=== PATIENT | female | born 1995 | race African-American/Black ===

== ENCOUNTER 2020-04-11 17:44 | Emergency (ER) | payer SELFPAY ==
--- NOTE | 2020-04-11 19:48 | ER ---
Nurse's Notes [facility] Name: Virginia Yip Age: 24 yrs Sex: Female : 1995 Arrival Date: 04/11/2020 Time: 17:47 Bed 16 Private MD: Diagnosis: Dental Pain Presentation: 04/11 18:10 Chief complaint: Patient states: tooth broke, gums and face swelling x 3 days. Haven't ca1 able to eat anything for the past 2 days. Coronavirus screen: Client denies travel out of the [place] in the last 14 days. At this time, the client does not indicate any symptoms associated with coronavirus-19. Ebola Screen: Patient negative for fever greater than or equal to 101.5 degrees Fahrenheit, and additional compatible Ebola Virus Disease symptoms Patient denies exposure to infectious person. Patient denies travel to an Ebola-affected area in the 21 days before illness onset. No symptoms or risks identified at this time. Initial Sepsis Screen: Does the patient meet any 2 criteria? No. Patient's initial sepsis screen is negative. Does the patient have a suspected source of infection? No. Patient's initial sepsis screen is negative. Risk Assessment: Do you want to hurt yourself or someone else? Patient reports no desire to harm self or others. Onset of symptoms was April 11, 2020. 18:10 Method Of Arrival: Ambulatory ca1 18:10 Acuity: MAYRA 4 ca1 Triage Assessment: 04/12 03:31 General: Appears. 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 - Social history:: Smoking status: Patient denies any tobacco usage or history of. Screenin:00 Abuse screen: Denies threats or abuse. Nutritional screening: No deficits noted. fu Tuberculosis screening: No symptoms or risk factors identified. Fall Risk None identified. Assessment: 19:00 General: Appears in no apparent distress. Behavior is calm, cooperative, appropriate fu for age, Denies fever, feeling ill, fatigue, chills. Pain: Complains of pain in left face Pain does not radiate. Pain currently is 8 out of 10 on a pain scale. Quality of pain is described as sharp, Pain began 2-3 days ago. Neuro: Level of Consciousness is awake, alert, obeys commands, Oriented to person, place, time, situation, Gait is steady, Speech is normal, Facial symmetry appears normal. Cardiovascular: Denies chest pain, vomiting. Respiratory: Respiratory effort is even, unlabored, Respiratory pattern is regular. GI: No signs and/or symptoms were reported involving the gastrointestinal system. EENT: Reports oral pain. Derm: mild swelling of the left face. Vital Signs: 18:10 BP 123 / 81; Pulse 69; Resp 16 S; Temp 97.1(TE); Pulse Ox 100% on R/A; Weight 76.2 kg ca1 (R); Height 5 ft. 2 in. (157.48 cm) (R); Pain 8/10; 18:10 Body Mass Index 30.73 (76.20 kg, 157.48 cm) ca1 ED Course: 17:47 Patient arrived in ED. ag5 18:13 Triage completed. ca1 18:14 Arm band placed on right wrist. ca1 18:15 Aakash Flanagan PA is PHCP. [facility] 18:15 Valente Velez MD is Attending Physician. [facility] 19:21 Ori Hull MD is Attending Physician. [facility] 19:32 [place], RN is Primary Nurse. fu 19:46 Chaim Omer DDS is Referral Physician. [facility] 20:00 Patient has correct armband on for positive identification. Bed in low position. Call fu light in reach. Side rails up X 1. 20:00 No provider procedures requiring assistance completed. fu 20:20 Patient did not have IV access during this emergency room visit. fu Administered Medications: 20:09 Drug: [place] 10 mg-325 mg 1 tabs Route: PO; ll2 20:20 Follow up: Response: Pain is decreased fu Outcome: 19:47 Discharge ordered by . jmm 20:20 Discharged to home ambulatory. fu 20:20 Condition: good 20:20 Discharge instructions given to patient, Instructed on discharge instructions, follow up and referral plans. Demonstrated understanding of instructions, follow-up care, Prescriptions given X 2. 20:27 Patient left the ED. fu Signatures: Ori Hull MD MD cha Mickail, Joel, PA PA jmm Umadhay, Felix, RN RN Annette Pink RN RN [facility] Gabrielle Kulkarni 5 Rosalba Shen RN RN ll2 Corrections: (The following items were deleted from the chart) 04/12 03:04/11 21:00 Response: Pain is decreased fu fu 04/12 03:04/11 20:30 Response: Pain is decreased fu fu
--- NOTE | 2020-04-11 19:48 | EDPHYS ---
Physician Documentation [facility] Name: Virginia Yip Age: 24 yrs Sex: Female : 1995 Arrival Date: 04/11/2020 Time: 17:47 Bed 16 Private MD: ED Physician Ori Hull HPI: 04/11 19:41 This 24 yrs old Black Female presents to ER via Ambulatory with complaints of Toothache.jmm 19:41 The patient presents with broken tooth/teeth, pain. Onset: The symptoms/episode jmm began/occurred acutely, 3 day(s) ago. Duration: The symptoms are continuous. Modifying factors: The symptoms are alleviated by nothing, the symptoms are aggravated by nothing. Associated signs and symptoms: Pertinent positives: swelling, Pertinent negatives: fever. The patient has not experienced similar symptoms in the past. 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 - Social history:: Smoking status: Patient denies any tobacco usage or history of. ROS: 19:41 Constitutional: Negative for fever, chills, and weight loss, Cardiovascular: Negative jmm for chest pain, palpitations, and edema, Respiratory: Negative for shortness of breath, cough, wheezing, and pleuritic chest pain. 19:41 ENT: Positive for dental pain. 19:41 All other systems are negative. Exam: 19:41 Constitutional: This is a well developed, well nourished patient who is awake, alert, jmm and in no acute distress. Head/Face: atraumatic. Eyes: EOMI, no conjunctival erythema appreciated ENT: Moist Mucus Membranes Neck: Trachea midline, Supple Chest/axilla: Normal chest wall appearance and motion. Cardiovascular: Regular rate and rhythm. No edema appreciated Respiratory: Normal respirations, no respiratory distress appreciated Abdomen/GI: Non distended, soft Back: Normal ROM 19:41 Skin: General appearance color normal MS/ Extremity: Moves all extremities, no obvious deformities appreciated, no edema noted to the lower extremities Neuro: Awake and alert, normal gait 19:41 ENT: Dental exam: gum swelling, that is moderate, specifically in the upper left second molar (#15). Vital Signs: 18:10 BP 123 / 81; Pulse 69; Resp 16 S; Temp 97.1(TE); Pulse Ox 100% on R/A; Weight 76.2 kg ca1 (R); Height 5 ft. 2 in. (157.48 cm) (R); Pain 8/10; 18:10 Body Mass Index 30.73 (76.20 kg, 157.48 cm) ca1 MDM: 19:21 Patient medically screened. [facility] 19:43 Data reviewed: vital signs, nurses notes. Counseling: I had a detailed discussion with payal the patient and/or guardian regarding: the historical points, exam findings, and any diagnostic results supporting the discharge/admit diagnosis, the need for outpatient follow up, to return to the emergency department if symptoms worsen or persist or if there are any questions or concerns that arise at home. ED course: Patient is alert and non toxic in appearance in the ED. Patient advised to follow up with pcp and otherwise given strict return precautions. Patient understood and agrees with the plan of care. . Administered Medications: 20:09 Drug: [place] 10 mg-325 mg 1 tabs Route: PO; ll2 20:20 Follow up: Response: Pain is decreased fu Disposition: 04/12 06:43 Co-signature as Attending Physician, Ori Hull MD I agree with the assessment and [facility] plan of care. Disposition: 04/11/20 19:47 Discharged to Home. Impression: Dental Pain. - Condition is Stable. - Discharge Instructions: Dental Pain. - Prescriptions for Clindamycin HCl 300 mg Oral Capsule - take 1 capsule by ORAL route every 6 hours for 10 days; 40 capsule. Ultracet 37.5- 325 mg Oral Tablet - take 1 tablet by ORAL route every 6 hours - for up to 5 days; do not exceed 8 tablets per day.; 12 tablet. - Medication Reconciliation Form, Thank You Letter, Antibiotic Education, Prescription Opioid Use form. - Follow up: Chaim Omer DDS; When: 2 - 3 days; Reason: Recheck today's complaints, Continuance of care, Re-evaluation by your physician. Signatures: Ori Hull MD MD cha Mickail, Joel, PA PA jmm Umadhay, Los, RN RN Annette Doll, RN RN [facility] Rosalba Sehn, RN RN ll2 Corrections: (The following items were deleted from the chart) 04/11 20:27 19:47 04/11/2020 19:47 Discharged to Home. Impression: Dental Pain. Condition is fu Stable. Forms are Medication Reconciliation Form, Thank You Letter, Antibiotic Education, Prescription Opioid Use. Follow up: Chaim Omer; When: 2 - 3 days; Reason: Recheck today's complaints, Continuance of care, Re-evaluation by your physician. payal
[2020-04-11] MEDS ORDERED: HYDROCODONE/APAP 10/325 TAB ONE (20:24)
[2020-04-11 21:47] VITALS: BP 123/81; TEMP 97.1; O2SAT 100
== END 2020-04-11 20:27 | disposition home or self-care (01) ==
LOC: ER 17:44
DX: K08.89 Other specified disorders of teeth and supporting structures (principal); I10 Essential (primary) hypertension
CPT/HCPCS: 99283

== ENCOUNTER 2020-09-14 11:35 | Emergency (ER) | payer SELFPAY ==
--- NOTE | 2020-09-14 11:53 | EDPHYS ---
Physician Documentation [facility] Name: Virginia Yip Age: 24 yrs Sex: Female : 1995 Arrival Date: 09/14/2020 Time: 11:37 Bed Waiting Private MD: ED Physician Ori Hull HPI: 09/14 11:56 This 24 yrs old Black Female presents to ER via Ambulatory with complaints of Sore jr8 Throat. 11:56 The patient presents with sore throat. The patient describes throat pain as constant, jr8 raw. Onset: The symptoms/episode began/occurred acutely, 2 day(s) ago. Severity of symptoms: At their worst the symptoms were moderate, in the emergency department the symptoms are unchanged. Modifying factors: The symptoms are alleviated by nothing, the symptoms are aggravated by swallowing. Associated signs and symptoms: Pertinent positives: headache, vomiting. The patient has not experienced similar symptoms in the past. The patient has not recently seen a physician. Historical: - Allergies: 11:49 HYDRALAZINE; tw2 11:49 Ketorolac; tw2 11:49 PENICILLINS; tw2 - PMHx: 11:49 Hypertension; tw2 - Immunization history:: Adult Immunizations. - Social history:: Smoking status: . ROS: 11:56 Eyes: Negative for injury, pain, redness, and discharge, Neck: Negative for injury, jr8 pain, and swelling, Cardiovascular: Negative for chest pain, palpitations, and edema, Respiratory: Negative for shortness of breath, cough, wheezing, and pleuritic chest pain, Abdomen/GI: Negative for abdominal pain, diarrhea, and constipation. Positive for nausea and vomiting Back: Negative for injury and pain, MS/Extremity: Negative for injury and deformity, Skin: Negative for injury, rash, and discoloration, Neuro: Negative for headache, weakness, numbness, tingling, and seizure. 11:56 ENT: Positive for sore throat. Exam: 11:56 Head/Face: Normocephalic, atraumatic. Eyes: Pupils equal round and reactive to light, jr8 extra-ocular motions intact. Lids and lashes normal. Conjunctiva and sclera are non-icteric and not injected. Cornea within normal limits. Periorbital areas with no swelling, redness, or edema. Cardiovascular: Regular rate and rhythm with a normal S1 and S2. No gallops, murmurs, or rubs. Normal PMI, no JVD. No pulse deficits. Respiratory: Lungs have equal breath sounds bilaterally, clear to auscultation and percussion. No rales, rhonchi or wheezes noted. No increased work of breathing, no retractions or nasal flaring. Abdomen/GI: Soft, non-tender, with normal bowel sounds. No distension or tympany. No guarding or rebound. No evidence of tenderness throughout. Skin: Warm, dry with normal turgor. Normal color with no rashes, no lesions, and no evidence of cellulitis. MS/ Extremity: Pulses equal, no cyanosis. Neurovascular intact. Full, normal range of motion. Neuro: Awake and alert, GCS 15, oriented to person, place, time, and situation. Cranial nerves II-XII grossly intact. Motor strength 5/5 in all extremities. Sensory grossly intact. 11:56 ENT: Exam is negative for earache, ear discharge, TM abnormalities, Nose: External nose: no obvious acute abnormality, Nasal septum: is midline, Nasal mucosa: moist, Turbinates: are normal, Mouth: Lips: moist, Oral mucosa: pink and intact, moist, Gums: pink, Tongue: is moist, Posterior pharynx: Airway: patent, Tonsils: bilaterally enlarged, with erythema, with exudate, no ulcerations, Uvula: midline, non-edematous, no erythema, swelling, is not appreciated, erythema, that is mild. 11:56 Neck: External neck: is normal, C-spine: appears grossly normal, Thyroid: appears normal, Trachea: is midline with no obvious abnormalities, ROM/movement: is normal, Lymph nodes: lymphadenopathy is appreciated, posterior cervical nodes. Vital Signs: 11:47 BP 120 / 87; Pulse 94; Resp 18; Temp 98.4(TE); Pulse Ox 100% on R/A; tw2 MDM: 11:46 Patient medically screened. [facility] 12:02 Data reviewed: vital signs, nurses notes, lab test result(s), and as a result, I will jr8 discharge patient. Data interpreted: Pulse oximetry: on room air is 100 %. Interpretation: normal. Counseling: I had a detailed discussion with the patient and/or guardian regarding: the historical points, exam findings, and any diagnostic results supporting the discharge/admit diagnosis, lab results, the need for outpatient follow up, a family practitioner, to return to the emergency department if symptoms worsen or persist or if there are any questions or concerns that arise at home. 09/14 11:51 Order name: Strep tw2 Administered Medications: No medications were administered Disposition: 16:03 Co-signature as Attending Physician, Ori Hull MD I agree with the assessment and arleen plan of care. Disposition Summary: 09/14/20 11:53 Discharge Ordered Location: Home jr8 Problem: new jr8 Symptoms: are unchanged jr8 Condition: Stable jr8 Diagnosis - Acute pharyngitis due to other specified organism jr8 Followup: jr8 - With: Private Physician - When: 1 week - Reason: Recheck today's complaints, Continuance of care, Re-evaluation by your physician Discharge Instructions: - Discharge Summary Sheet jr8 - Pharyngitis jr8 Forms: - Medication Reconciliation Form jr8 - Thank You Letter jr8 - Antibiotic Education jr8 - Prescription Opioid Use jr8 Prescriptions: - Clindamycin HCl 300 mg Oral Capsule - take 1 capsule by ORAL route every 8 hours for 10 days; 30 capsule; Refills: 0, jr8 Product Selection Permitted - Zofran 4 mg Oral Tablet - take 1 tablet by ORAL route every 12 hours As needed; 20 tablet; Refills: 0, jr8 Product Selection Permitted Signatures: Dispatcher [employer] Ori Rowan MD MD cha Roszak, Josh, PA PA jr8 Odalys Peacock, RN RN tw2
--- NOTE | 2020-09-14 11:53 | ER ---
Nurse's Notes [facility] Name: Virginia Yip Age: 24 yrs Sex: Female : 1995 Arrival Date: 09/14/2020 Time: 11:37 Bed Waiting Private MD: Diagnosis: Acute pharyngitis due to other specified organism Presentation: 09/14 11:47 Chief complaint: Patient states: for 2 days i have been with cough congestion and runny tw2 nose. Coronavirus screen: congestion, cough unrelated to allergies, runny nose, Client presents with at least one sign or symptom that may indicate coronavirus-19. Standard/surgical mask placed on the client. Provider contacted for isolation considerations. Ebola Screen: Patient denies travel to an Ebola-affected area in the 21 days before illness onset. Initial Sepsis Screen: Does the patient meet any 2 criteria? HR > 90 bpm. No. Patient's initial sepsis screen is negative. Does the patient have a suspected source of infection? No. Patient's initial sepsis screen is negative. Risk Assessment: Do you want to hurt yourself or someone else? Patient reports no desire to harm self or others. Note provider Xander Turk in triage room. Onset of symptoms was September 14, 2020. 11:47 Method Of Arrival: Ambulatory tw2 11:47 Acuity: MAYRA 4 tw2 Triage Assessment: 11:49 General: Appears in no apparent distress. Behavior is calm, cooperative, appropriate tw2 for age. Pain: Complains of pain in uvula, left aspect of posterior pharynx and right aspect of posterior pharynx. EENT: Throat is reddened Reports nasal congestion nasal discharge pain when swallowing. 11:49 GI: Reports nausea. tw2 Historical: - Allergies: 11:49 HYDRALAZINE; tw2 11:49 Ketorolac; tw2 11:49 PENICILLINS; tw2 - PMHx: 11:49 Hypertension; tw2 - Immunization history:: Adult Immunizations. - Social history:: Smoking status: . Assessment: 11:58 Reassessment: Patient appears in no apparent distress at this time. No changes from tw2 previously documented assessment. Patient and/or family updated on plan of care and expected duration. Pain level reassessed. Patient is alert, oriented x 3, equal unlabored respirations, skin warm/dry/pink. Vital Signs: 11:47 BP 120 / 87; Pulse 94; Resp 18; Temp 98.4(TE); Pulse Ox 100% on R/A; tw2 ED Course: 11:37 Patient arrived in ED. mr 11:46 Xander Arrington PA is PHCP. jr8 11:46 Ori Hull MD is Attending Physician. jr8 11:49 Triage completed. tw2 11:49 Arm band placed on. tw2 11:58 Odalys Peacock, YESSENIA is Primary Nurse. tw2 11:58 Strep Sent. tw2 Administered Medications: No medications were administered Outcome: 11:53 Discharge ordered by . jr8 11:58 Discharged to home ambulatory. tw2 11:58 Condition: stable 11:58 Discharge instructions given to patient, Instructed on discharge instructions, follow up and referral plans. Demonstrated understanding of instructions, follow-up care, medications, Prescriptions given X 2. 11:58 Patient left the ED. tw2 Signatures: Lee Rosio mr PhyllisyarelyXander PA PA jr8 Odalys Peacock, RN RN tw2
[2020-09-14 12:07] VITALS: BP 120/87; TEMP 98.4; O2SAT 100
== END 2020-09-14 11:58 | disposition home or self-care (01) ==
LOC: ER 11:35
DX: J02.8 Acute pharyngitis due to other specified organisms (principal); I10 Essential (primary) hypertension
CPT/HCPCS: 87070; 87081; 99283

== ENCOUNTER 2021-05-26 10:11 | Emergency (ER) | payer SELFPAY ==
[2021-05-26] MEDS ORDERED: dexAMETHasone 10 MG/ML VIAL ONE (11:09)
--- NOTE | 2021-05-26 12:18 | EDPHYS ---
Physician Documentation [facility] Name: Virginia Yip Age: 25 yrs Sex: Female : 1995 Arrival Date: 05/26/2021 Time: 10:13 Bed 9 Private MD: MESSI Physician Ori Hull HPI: 05/26 10:32 This 25 yrs old Black Female presents to ER via Ambulatory with complaints of Sore jmm Throat. 10:32 The patient presents with sore throat. The patient describes throat pain as burning, jmm constant, scratchy. Onset: The symptoms/episode began/occurred gradually, 1 day(s) ago. Modifying factors: The symptoms are alleviated by nothing, the symptoms are aggravated by nothing. Associated signs and symptoms: Pertinent positives: chills. The patient has experienced similar episodes in the past. Historical: - Allergies: 10:36 HYDRALAZINE; ll1 10:36 Ketorolac; ll1 10:36 PENICILLINS; ll1 - PMHx: 10:36 Hypertension; ll1 - PSHx: 10:36 None; ll1 - Immunization history:: Client reports having NOT received the Covid vaccine. - Social history:: Smoking status: Patient denies any tobacco usage or history of. ROS: 10:32 Cardiovascular: Negative for chest pain, palpitations, and edema, Respiratory: Negative jmm for shortness of breath, cough, wheezing, and pleuritic chest pain. 10:32 Constitutional: Positive for body aches, chills. 10:32 All other systems are negative. Exam: 10:32 Constitutional: This is a well developed, well nourished patient who is awake, alert, jmm and in no acute distress. Head/Face: atraumatic. Eyes: EOMI, no conjunctival erythema appreciated 10:32 Neck: Trachea midline, Supple Chest/axilla: Normal chest wall appearance and motion. Cardiovascular: Regular rate and rhythm. No edema appreciated Respiratory: Normal respirations, no respiratory distress appreciated Abdomen/GI: Non distended, soft Back: Normal ROM Skin: General appearance color normal MS/ Extremity: Moves all extremities, no obvious deformities appreciated, no edema noted to the lower extremities Neuro: Awake and alert Psych: Behavior is normal, Mood is normal, Patient is cooperative and pleasant 10:32 ENT: Posterior pharynx: erythema, that is moderate, exudate, that is mild, peritonsillar mass, is not appreciated. Vital Signs: 10:33 BP 129 / 87; Pulse 88; Resp 16; Temp 98.0; Pulse Ox 100% ; Weight 79.38 kg; Height 5 ll1 ft. 2 in. (157.48 cm); 10:33 Body Mass Index 32.01 (79.38 kg, 157.48 cm) ll1 MDM: 10:38 Patient medically screened. [facility] 12:16 Data reviewed: vital signs, nurses notes. Counseling: I had a detailed discussion with payal the patient and/or guardian regarding: the historical points, exam findings, and any diagnostic results supporting the discharge/admit diagnosis, lab results, the need for outpatient follow up, to return to the emergency department if symptoms worsen or persist or if there are any questions or concerns that arise at home. 05/26 10:31 Order name: Strep; Complete Time: 11:05 [facility] 05/26 11:07 Order name: Throat Culture EDMS Administered Medications: 11:09 Drug: Decadron (dexamethasone) 10 mg Route: IM; Site: right gluteus; ll1 12:28 Follow up: Response: No adverse reaction ss Disposition Summary: 05/26/21 12:17 Discharge Ordered Location: Home [facility] Condition: Stable [facility] Diagnosis - Acute pharyngitis, unspecified [facility] Followup: [facility] - With: Private Physician - When: 2 - 3 days - Reason: Recheck today's complaints, Continuance of care, Re-evaluation by your physician Discharge Instructions: - Discharge Summary Sheet [facility] - Pharyngitis [facility] Forms: - Medication Reconciliation Form [facility] - Thank You Letter [facility] - Antibiotic Education [facility] - Prescription Opioid Use [facility] Prescriptions: - cefdinir 300 mg Oral capsule - take 1 capsule by ORAL route every 12 hours for 10 days; 20 capsule; Refills: [facility] 0, Product Selection Permitted Addendum: 05/30/2021 18:34 Co-signature as Attending Physician, Aakash VALADEZ I agree with the assessment and c torres plan of care. Signatures: Dispatcher [employer] EDOri Otero MD MD cha Mickail, Joel, PA PA jmm Lewis, Lynsay, RN RN ll1 Ghada Adler RN ss
--- NOTE | 2021-05-26 12:18 | ER ---
Nurse's Notes [facility] Name: Virginia Yip Age: 25 yrs Sex: Female : 1995 Arrival Date: 05/26/2021 Time: 10:13 Bed 9 Private MD: Diagnosis: Acute pharyngitis, unspecified Presentation: 05/26 10:33 Chief complaint: Patient states: Body aches, CARBAJAL, congestion started . Sore ll1 throat started today. No fever. Coronavirus screen: Vaccine status: Patient reports being unvaccinated. Client denies travel out of the [place] in the last 14 days. congestion, fatigue, headache, muscle pain, sore throat, Client presents with at least one sign or symptom that may indicate coronavirus-19. Standard/surgical mask placed on the client. Ebola Screen: Patient denies travel to an Ebola-affected area in the 21 days before illness onset. Initial Sepsis Screen: Does the patient meet any 2 criteria? No. Patient's initial sepsis screen is negative. Does the patient have a suspected source of infection? Yes: Other: sore throat. Risk Assessment: Do you want to hurt yourself or someone else? Patient reports no desire to harm self or others. Onset of symptoms was May 23, 2021. 10:33 Method Of Arrival: Ambulatory ll1 10:33 Acuity: MAYRA 4 ll1 Triage Assessment: 10:35 General: Appears in no apparent distress. Behavior is calm, cooperative, appropriate ll1 for age. Pain: Complains of pain in throat Quality of pain is described as aching, Aggravated by eating, drinking. EENT: Reports nasal congestion pain when swallowing. Neuro: Reports headache. Musculoskeletal: Reports body aches. Historical: - Allergies: 10:36 HYDRALAZINE; ll1 10:36 Ketorolac; ll1 10:36 PENICILLINS; ll1 - PMHx: 10:36 Hypertension; ll1 - PSHx: 10:36 None; ll1 - Immunization history:: Client reports having NOT received the Covid vaccine. - Social history:: Smoking status: Patient denies any tobacco usage or history of. Screenin:36 Abuse screen: Denies threats or abuse. Nutritional screening: No deficits noted. ll1 Tuberculosis screening: No symptoms or risk factors identified. Fall Risk Total Connor Fall Scale indicates No Risk (0-24 pts). Assessment: 12:14 Reassessment: awaiting disposition. Strep swab is back. Aakash states that he was waiting ss for Flu swab, however patient stated that she only wanted to be tested for strep. ALLYSON Finn notified and states that he will dispo patient THALIA. 12:27 General: Appears in no apparent distress. comfortable, Behavior is calm, cooperative. ss Neuro: Level of Consciousness is awake, alert. Respiratory: Airway is patent Respiratory effort is even, unlabored, Respiratory pattern is regular, symmetrical. Derm: Skin is intact, is healthy with good turgor, Skin is pink, warm \T\ dry. normal. Vital Signs: 10:33 BP 129 / 87; Pulse 88; Resp 16; Temp 98.0; Pulse Ox 100% ; Weight 79.38 kg; Height 5 ll1 ft. 2 in. (157.48 cm); 10:33 Body Mass Index 32.01 (79.38 kg, 157.48 cm) ll1 ED Course: 10:13 Patient arrived in ED. rg4 10:21 Aakash Flanagan PA is PHCP. [facility] 10:21 Ori Hull MD is Attending Physician. jm 10:31 Chet Lemon, YESSENIA is Primary Nurse. ll1 10:31 Arm band placed on Patient placed in an exam room, on a stretcher. ll1 10:35 Triage completed. ll1 10:36 Patient has correct armband on for positive identification. Bed in low position. Call ll1 light in reach. Side rails up X 1. Cardiac monitoring not applicable on this patient. 10:49 Strep swab sent to lab. mb7 12:27 No provider procedures requiring assistance completed. Patient did not have IV access ss during this emergency room visit. Administered Medications: 11:09 Drug: Decadron (dexamethasone) 10 mg Route: IM; Site: right gluteus; ll1 12:28 Follow up: Response: No adverse reaction ss Outcome: 12:17 Discharge ordered by . wally 12:27 Discharged to home ambulatory. ss 12:27 Condition: good 12:27 Discharge instructions given to patient, Instructed on discharge instructions, follow up and referral plans. medication usage, Demonstrated understanding of instructions, follow-up care, medications, Prescriptions given X 1. 12:28 Patient left the ED. ss Signatures: Aakash Flanagan PA PA jmm Smirch, Shelby, RN RN ss Akilah Duff rg4 Chet Lemon RN RN ll1 NicolásRosio 7
[2021-05-26 12:34] VITALS: BP 129/87; TEMP 98; O2SAT 100
== END 2021-05-26 12:28 | disposition home or self-care (01) ==
LOC: ER 10:11
DX: J02.9 Acute pharyngitis, unspecified (principal); I10 Essential (primary) hypertension; Z88.0 Allergy status to penicillin; Z88.8 Allergy status to other drugs, medicaments and biological substances; Z20.822 Contact with and (suspected) exposure to COVID-19
CPT/HCPCS: 87070; 87081; 96372; 99283; J1100

== ENCOUNTER 2022-02-07 12:13 | Emergency (ER) | payer SELFPAY ==
--- OUTSIDE RECORDS SUMMARY | 2022-02-07 12:16 | XMS REPORT | Continuity of Care Document ---
:1995 Author Organization [facility] t Address [address] [place] [address] [address]. [address] [place] [address] Care Team Providers Name Role Phone LUBNA Attending Clinician Unavailable LUBNA Admitting Clinician Unavailable Problems This patient has no known problems. Allergies, Adverse Reactions, Alerts This patient has no known allergies or adverse reactions. Medications This patient has no known medications. Procedures This patient has no known procedures. Encounters Start End Encounter Admission Attending Care Care Encounter Source Date/Time Date/Time Type Type Clinicians Facility Department ID 2021-09-16 2021-09-16 Outpatient [facility] [id number] [place] 00:00:00 00:00:00 LEEANNA [id number] da [facility] Program Results This patient has no known results.
[2022-02-07] MEDS ORDERED: dexAMETHasone 10 MG/ML VIAL ONE (12:35)
[2022-02-07 13:25] LABS: SARS-COV-2 RT PCR POSITIVE (NEGATIVE)
--- NOTE | 2022-02-07 13:34 | EDPHYS ---
Physician Documentation [facility] Name: Virginia Yip Age: 26 yrs Sex: Female : 1995 Arrival Date: 02/07/2022 Time: 12:15 Bed 12 Private MD: ED Physician Adi Nash HPI: 02/07 13:02 This 26 yrs old Black Female presents to ER via Ambulatory with complaints of High jmm Blood Pressure, Congestion. 13:02 Onset: The symptoms/episode began/occurred gradually, 2 day(s) ago. This is a 26 year jmm old female with a history of htn that presents to the ED with complaints of sinus congestion beginning approx 2 days ago. Complains of body aches, fatigue. Denies vomiting, sob, abdominal pain. . 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 Last tetanus immunization: up to date. - Social history:: Smoking status: Patient denies any tobacco usage or history of. ROS: 13:02 Constitutional: Positive for body aches, chills. jmm 13:02 ENT: Positive for sinus congestion. 13:02 All other systems are negative. Exam: 13:02 Constitutional: This is a well developed, well nourished patient who is awake, alert, jmm and in no acute distress. Head/Face: atraumatic. Eyes: EOMI, no conjunctival erythema appreciated 13:02 Neck: Trachea midline, Supple Chest/axilla: Normal chest wall appearance and motion. Cardiovascular: Regular rate and rhythm. No edema appreciated Respiratory: Normal respirations, no respiratory distress appreciated Abdomen/GI: Non distended Back: Normal ROM Skin: General appearance color normal MS/ Extremity: Moves all extremities, no obvious deformities appreciated, no edema noted to the lower extremities Neuro: Awake and alert Psych: Behavior is normal, Mood is normal, Patient is cooperative and pleasant 13:02 ENT: Posterior pharynx: erythema, that is mild. Vital Signs: 12:21 BP 125 / 78; Pulse 81; Resp 20; Temp 99.5; Pulse Ox 98% ; Weight 79.38 kg; Height 5 ft. kb3 2 in. (157.48 cm); Pain 6/10; 12:21 Body Mass Index 32.01 (79.38 kg, 157.48 cm) kb3 MDM: 12:28 Patient medically screened. [facility] 13:32 Data reviewed: vital signs, nurses notes. Counseling: I had a detailed discussion with payal the patient and/or guardian regarding: the historical points, exam findings, and any diagnostic results supporting the discharge/admit diagnosis, lab results, the need for outpatient follow up, to return to the emergency department if symptoms worsen or persist or if there are any questions or concerns that arise at home. ED course: Patient is alert and non toxic in appearance in the ED. Patient advised to follow up with pcp and otherwise given strict return precautions. patient understood and agrees with the plan of care. . 02/07 12:28 Order name: COVID-19/FLU A+B; Complete Time: 13:32 [facility] Administered Medications: 12:37 Drug: Decadron (dexamethasone) 10 mg Route: IM; Site: right deltoid; ap3 13:35 Follow up: Response: No adverse reaction ap3 Disposition: 18:01 Co-signature as Attending Physician, Adi Nash DO I was immediately available on-site ms3 in the Emergency Department for consultation in the care of the patient. Disposition Summary: 02/07/22 13:33 Discharge Ordered Location: Home [facility] Condition: Stable [facility] Diagnosis - Coronavirus infection, unspecified [facility] Followup: [facility] - With: Private Physician - When: 2 - 3 days - Reason: Recheck today's complaints, Continuance of care, Re-evaluation by your physician Discharge Instructions: - Discharge Summary Sheet [facility] - COVID-19 [facility] Forms: - Medication Reconciliation Form [facility] - Thank You Letter [facility] - Antibiotic Education jmm - Prescription Opioid Use [facility] - Work release form ap3 Signatures: Dispatcher [employer] EDMS Aakash Flanagan PA PA jmm Prokisch, Amanda RN RN ap3 Adi Nash DO DO ms3 Deandra Duncan, RN RN kb3 Corrections: (The following items were deleted from the chart) 12: 12:25 Allergies: Ketorolac; kb3 kb3
--- NOTE | 2022-02-07 13:34 | ER ---
Nurse's Notes [facility] [place], [place] Name: Virginia Yip Age: 26 yrs Sex: Female : 1995 Arrival Date: 02/07/2022 Time: 12:15 Bed 12 Private MD: Diagnosis: Coronavirus infection, unspecified Presentation: 02/07 12:21 Chief complaint: Patient states: Pt reports sinus congestion and drainage with pain kb3 behind eyes and across forehead since yesterday. Coronavirus screen: Vaccine status: Patient reports being unvaccinated. Client denies travel out of the [place] in the last 14 days. Ebola Screen: Patient negative for fever greater than or equal to 101.5 degrees Fahrenheit, and additional compatible Ebola Virus Disease symptoms Patient denies exposure to infectious person. Patient denies travel to an Ebola-affected area in the 21 days before illness onset. Initial Sepsis Screen: Does the patient meet any 2 criteria? No. Patient's initial sepsis screen is negative. Does the patient have a suspected source of infection? No. Patient's initial sepsis screen is negative. Risk Assessment: Do you want to hurt yourself or someone else? Patient reports no desire to harm self or others. Onset of symptoms was February 05, 2022. 12:21 Method Of Arrival: Ambulatory kb3 12:21 Acuity: MAYRA 4 kb3 Triage Assessment: 12:25 General: Appears in no apparent distress. ill, Behavior is calm, cooperative. Pain: kb3 Complains of pain in forehead, right eye, nose and left eye Pain does not radiate. Pain currently is 6 out of 10 on a pain scale. Respiratory: Breath sounds are clear. 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 Last tetanus immunization: up to date. - Social history:: Smoking status: Patient denies any tobacco usage or history of. Screenin:37 [facility] ED Fall Risk Assessment (Adult) History of falling in the last 3 months, ap3 including since admission No falls in past 3 months (0 pts). Abuse screen: Denies threats or abuse. Nutritional screening: No deficits noted. Tuberculosis screening: No symptoms or risk factors identified. Assessment: 12:37 General: Appears uncomfortable, Behavior is calm, cooperative, appropriate for age. ap3 Pain: Complains of pain in HEAD. Neuro: Level of Consciousness is awake, alert, obeys commands, Oriented to person, place, time, situation, Appropriate for age Gait is steady, Speech is normal. Cardiovascular: Patient's skin is warm and dry. Respiratory: Airway is patent Respiratory effort is even, unlabored, Respiratory pattern is regular, symmetrical. Vital Signs: 12:21 BP 125 / 78; Pulse 81; Resp 20; Temp 99.5; Pulse Ox 98% ; Weight 79.38 kg; Height 5 ft. kb3 2 in. (157.48 cm); Pain 6/10; 12:21 Body Mass Index 32.01 (79.38 kg, 157.48 cm) kb3 ED Course: 12:15 Patient arrived in ED. as 12:22 Aakash Flanagan PA is PHCP. payal 12:22 Adi Nash DO is Attending Physician. wally 12:25 Triage completed. kb3 12:25 Arm band placed on right wrist. kb3 12:31 Sharifa Forrester, RN is Primary Nurse. ap3 12:34 COVID-19/FLU A+B Sent. ss 12:37 Patient has correct armband on for positive identification. Bed in low position. Call ap3 light in reach. Pulse ox on. NIBP on. Door closed. Noise minimized. 13:34 No provider procedures requiring assistance completed. Patient did not have IV access ap3 during this emergency room visit. Administered Medications: 12:37 Drug: Decadron (dexamethasone) 10 mg Route: IM; Site: right deltoid; ap3 13:35 Follow up: Response: No adverse reaction ap3 Medication: 12:38 VIS not applicable for this client. ap3 Outcome: 13:33 Discharge ordered by . jmm 13:35 Discharged to home ambulatory. ap3 13:35 Condition: good 13:35 Discharge instructions given to patient, Instructed on discharge instructions, follow up and referral plans. Demonstrated understanding of instructions, follow-up care. 13:41 Patient left the ED. ap3 Signatures: Aakash Flanagan PA PA jmm Martinez, Amelia as Smirch, Shelby, RN RN ss Sharifa Forrester RN RN ap3 Deandra Duncan RN RN kb3 Corrections: (The following items were deleted from the chart) 12:27 12:25 Allergies: Ketorolac; kb3 kb3
[2022-02-07 13:46] VITALS: BP 125/78; TEMP 99.5; O2SAT 98
== END 2022-02-07 13:41 | disposition home or self-care (01) ==
LOC: ER 12:13
DX: U07.1 COVID-19 (principal); I10 Essential (primary) hypertension; Z88.0 Allergy status to penicillin; Z88.8 Allergy status to other drugs, medicaments and biological substances
CPT/HCPCS: 0240U; 96372; 99283; J1100